=== PATIENT | male | born 1950 | race Caucasian/White ===

== ENCOUNTER → 2016-06-01 | Outpatient (CLI) | payer MEDICARE ==
--- NOTE | 2016-06-01 08:42 | MRI ---
Study: MRI of the Thoracic Spine. Indication: DORSALGIA Technique: Multiplanar, multi sequence MRI of the thoracic spine was obtained without intravenous contrast. Comparison: May 06, 2016. Findings: Previously noted T8 compression fracture has undergone interval vertebral body augmentation without complicating features. There is persistent marrow edema throughout the vertebral body. Prior T9 vertebral body augmentation redemonstrated as well with persistent marrow edema. New subtle marrow edema noted within the anterior margin of the T7 vertebral body with slight extension to the inferior end-plate concerning for a new tiny nondisplaced fracture. No retropulsion or posterior extension. The T10-T11 posterior central disc protrusion contacting the thoracic spinal cord is redemonstrated and stable. Impression: Postsurgical changes of T8 and T9 vertebral body augmentation with new subtle nondisplaced T7 fracture which would also be amenable to vertebral body augmentation. Stable T10-T11 disc protrusion indenting the ventral spinal cord. Electronically signed by: Guicho Chin MD 06/01/2016 08:39
== END ==
LOC: MRI 07:06
PROVIDERS: ATTEND Nurse Practitioner Family
DX: S22.069A Unspecified fracture of T7-T8 vertebra, initial encounter for closed fracture (principal); M51.24 Other intervertebral disc displacement, thoracic region

== ENCOUNTER → 2016-10-15 | Outpatient (CLI) | payer MEDICARE | END | disposition home or self-care (01) | LOC: LAB.O 08:16 | PROVIDERS: ATTEND Psychiatry & Neurology Neurology | DX: G61.81 Chronic inflammatory demyelinating polyneuritis (principal); R41.3 Other amnesia ==

== ENCOUNTER → 2016-11-03 | Outpatient (CLI) | payer MEDICARE | END | disposition home or self-care (01) | LOC: LAB.O 07:17 | PROVIDERS: ATTEND Nurse Practitioner Family | DX: E11.9 Type 2 diabetes mellitus without complications (principal) ==

== ENCOUNTER → 2017-05-26 | Outpatient (CLI) | payer MEDICARE | END | disposition home or self-care (01) | LOC: LAB.O 15:37 | PROVIDERS: ATTEND Psychiatry & Neurology Neurology | DX: G61.81 Chronic inflammatory demyelinating polyneuritis (principal) ==

== ENCOUNTER → 2017-08-29 | Outpatient (CLI) | payer MEDICARE ==
--- NOTE | 2017-08-29 09:10 | US ---
EXAM DESCRIPTION:Carotid Duplex CLINICAL HISTORY:OCCLUSION AND STENOSIS OF JOVITA CAR ART COMPARISON: None TECHNIQUE: Grayscale and color Doppler sonographic evaluations of carotid and vertebral arterial segments of the neck. FINDINGS: Suboptimal visualization of the left vertebral artery. Bilateral carotid and right vertebral arteries are patent bilaterally with appropriate directions of flow, and biphasic flow waveforms. Mild calcific atherosclerotic deposition along carotid bulbs and proximal internal carotid arteries. Peak systolic flow velocities (in CM/sec) as follows: Right side, CCA proximal, 99 CCA distal, 105 ICA proximal, 84 ICA mid, 76 ICA distal, 59 ECA proximal, 107 Proximal ICA/distal CCA ratio, 0.8 Left side, CCA proximal, 85 CCA distal, 164 ICA proximal, 44 ICA mid, 23 ICA distal, 25 ECA proximal, 90 Proximal ICA/distal CCA ratio, 0.3 Morphologically, there is approximately 30% stenosis in proximal right internal carotid artery. Focally 42% stenosis in right carotid bulb and 59% stenosis in left carotid bulb. IMPRESSION: 1. Suboptimal visualization of left vertebral artery. Bilateral carotid and right vertebral arteries are patent bilaterally with appropriate directions of flow 2. Possible moderate (50-69%) stenosis between proximal to distal segments of the left common carotid artery based on velocity criteria. There is also morphologically 59% stenosis in the left carotid bulb Electronically signed by: John Travis MD 08/29/2017 9:08 AM CDT
== END | disposition home or self-care (01) ==
LOC: US 08:02
PROVIDERS: ATTEND Nurse Practitioner Family
DX: I65.23 Occlusion and stenosis of bilateral carotid arteries (principal)

== ENCOUNTER → 2017-10-20 | Outpatient (CLI) | payer MEDICARE ==
--- NOTE | 2017-10-20 15:17 | MRI ---
EXAM DESCRIPTION: Brain w/wo Contrast: Magnetic Resonance Imaging. CLINICAL HISTORY: TRIGEMINAL NEURALGIA COMPARISON: Duplex ultrasound evaluation of the bilateral carotid vertebral systems 08/29/2017. TECHNIQUE: Multiplanar, high-field MRI, multiple conventional sequences, without and with gadolinium IV contrast. No adverse reactions. Multiple axial diffusion sequences. FINDINGS: Minimal small bands of hyperintense FLAIR and T2-weighted signal in the periventricular white matter abutting the ventricles. Normal signal in the subcortical white and gar matter junctions of the cerebral hemispheres. . No hemorrhage cerebral edema or abnormal contrast enhancement. Normal signal in the bilateral basal ganglia, except for prominent perivascular spaces. No hemorrhage, no cerebral edema, no mass-effect. Normal contrast enhancement. Normal signal in the brainstem and cerebellar hemispheres. No hemorrhage, no cerebral edema, no mass-effect. Normal contrast enhancement. Bilateral trigeminal ganglion appear symmetric in size and signal and enhancement; no mass effect. Concordance of the diffusion and non-diffusion sequences with no evidence of acute or subacute infarction. Cortical sulci, ventricles, and other CSF spaces, and the subdural spaces are minimally prominent for patient's age. No effacement or displacement. No midline shift. No extra-axial hemorrhage. Normal contrast enhancement. Normal flow signal void in the major vessels of the [place], and the venous sinuses. IACs are symmetric bilaterally. Minimal fluid signal in the inferior right mastoid air cells. No mass effect in the bilateral Cerebellopontine angles. Normal contrast enhancement. Pituitary gland occupies most of the sella. Normal contrast enhancement. Base of the cerebellar tonsils is above the foramen magnum. Normal signal in the included paranasal sinuses. Magnetic artifact degrading the sinus area on the GRE images. The bony calvarium is intact. IMPRESSION: 1. Minimal periventricular white matter leukomalacia most likely related to microvascular disease. This likely related to migraine headaches, vasculitis, demyelinating process, or inflammatory process. 2. Symmetric size and signal and enhancement in the trigeminal ganglion. 3. Minimal right mastoiditis. Paranasal sinuses are unremarkable. Electronically signed by: Itz Wall MD 10/20/2017 3:16 PM CDT
== END ==
LOC: MRI 07:12
PROVIDERS: ATTEND Nurse Practitioner Family
DX: G50.0 Trigeminal neuralgia (principal); H70.91 Unspecified mastoiditis, right ear

== ENCOUNTER → 2018-02-27 | Outpatient (CLI) | payer MEDICARE ==
--- NOTE | 2018-02-27 15:03 | MRI ---
EXAM DESCRIPTION: Brain w/o Contrast: MRI. CLINICAL HISTORY: TIA. 2 days ago: dizziness weakness vision changes. COMPARISON: MRI scan of the brain without and with gadolinium IV contrast 10/20/2016. TECHNIQUE: Multiplanar, high-field MRI unit, multiple diffusion sequences, multiple conventional sequences without contrast. FINDINGS: Small bilateral foci of hyperintense FLAIR and T2-weighted signal primarily in the periventricular white matter with no significant changes in the subcortical white matter. . No hemorrhage, no cerebral edema, no diffusion restriction. Bilateral basal ganglia unremarkable with no diffusion restriction or hemorrhage. Normal signal in the brainstem and cerebellar hemispheres. No hemorrhage, no cerebral edema, or diffusion restriction. Concordance of the diffusion and non-diffusion sequences with no diffusion restriction. Cortical sulci, ventricles, and other CSF spaces, and the subdural spaces are physiologic for patient's age. No effacement or displacement. No midline shift. No extra-axial hemorrhage. Normal flow signal void in the major vessels of the [place], and the venous sinuses. IACs are symmetric bilaterally. Minimal fluid signal in the inferior right mastoid air cells. No mass effect in the bilateral cerebellopontine angles. Pituitary gland occupies all of the sella. Base of the cerebellar tonsils is above the foramen magnum. Bilateral minimal mucosal thickening in the ethmoid air cells and axillary antra. The bony calvarium is intact. IMPRESSION: 1. Minimal bilateral periventricular white matter signal changes, stable since the prior study and most likely age-related or cerebral microvascular disease. No significant findings in the bilateral basal ganglia, brainstem, or posterior fossa. No hemorrhage or cerebral edema. 2. MRI noncontrast diffusion study showing no evidence of acute or subacute infarction, with no diffusion restriction 3. Stable inflammatory signal in the inferior right mastoid air cells and the paranasal sinuses. Electronically signed by: Itz Wall MD 02/27/2018 3:01 PM CDT
== END ==
LOC: MRI 10:00
PROVIDERS: ATTEND Emergency Medicine
DX: G45.9 Transient cerebral ischemic attack, unspecified (principal)

== ENCOUNTER → 2018-06-07 | Outpatient (CLI) | payer MEDICARE ==
--- NOTE | 2018-06-08 08:10 | CT ---
Procedure: CT LUNG SCREENING Exam Date: June 07, 2018. Ordering Provider: Valerie Eldridge Clinical Indication: HISTORY OF NICOTINE DEPENDENCE. 30 pack years. Quit smoking. This patient meets eligibility criteria for low-dose CT lung cancer screening. Comparison: None. Technique: Using a multislice scanner, sequential helical axial imaging was obtained in the thorax, 2.5 mm thickness, 2.5 mm separation, from the level of the thoracic inlet through the lung bases without IV contrast. A low dose protocol was utilized: CTDI: 2.93 mGy. 120. kVp. 75 mA. DLP 111.18 mGy centimeters. 2D sagittal and coronal reconstructed images, 6.0 mm thickness, were obtained. This exam was performed according to our departmental dose optimization program which includes use of automated exposure control, adjustment of the mA and/or kV according to patient size and/or use of iterative reconstruction technique. Nodule measurements under 10 mm are given as mean value of 3 axes diameters. FINDINGS: Lungs and large airways: Bilateral mild perihilar peribronchial wall cuffing. Minimal atelectasis in the bilateral lower lobe bases and scarring in the inferior medial middle lobe and inferior lingula. Minimal parenchymal blebs in the bilateral upper lobes. No abnormal nodule, no mass, no focal infiltrate. Pleura and space: Bilateral pleural thickening in the bases and laterally abutting the lower lobes. No effusion or pneumothorax. Mediastinum and kera: evaluation limited by low dose technique and lack of IV contrast. No enlarged lymph nodes. No dominant soft tissue masses or abnormal calcifications. Heart and great vessels: Atherosclerotic calcifications in the coronary arteries, aortic arch, and descending thoracic aorta. Chest wall, lower neck, axillae: Evaluation also limited by same factors as described above. Calcifications in the right thyroid lobe. No enlarged axillary lymph nodes. Upper abdomen: Gallbladder is visualized and may contain sludge. Normal size and density of the spleen and adrenal glands. Included peritoneal space with no free fluid or free air. Osseous structures: Evaluation limited by low dose MIP technique. Arthrosis in the sternomanubrial joint and in the bilateral external clavicular joints. Minimal arthrosis in the right glenohumeral joint. Previous vertebral plasty augmentation T7, T8, and T9 vertebral bodies. Compression of all 3 vertebral bodies, T8 greater than T9 greater than T7. Spondylosis at other levels. IMPRESSION: 1. Minimal emphysematous changes. No abnormal nodule. No mass. No focal infiltrate. [facility] Best Practice guidelines recommend one year follow-up based upon lung RADS category system.. Please see below for Lung RADS category and FOLLOW-UP.* *Lung RADS category Category 1 - No nodule or definitely benign nodules (probability of malignancy less than 1%). Follow-up: Continue annual screening with Low Dose Chest CT in 12 months. 2. Calcifications in the right lobe of the thyroid gland. Follow-up thyroid ultrasound is recommended. Electronically signed by: Itz Wall MD 06/08/2018 8:09 AM [facility]
== END ==
LOC: CT 08:10
PROVIDERS: ATTEND Nurse Practitioner Family
DX: Z87.891 Personal history of nicotine dependence (principal)

== ENCOUNTER → 2018-06-09 | Outpatient (CLI) | payer MEDICARE ==
--- NOTE | 2018-06-10 16:14 | US ---
US THYROID CLINICAL STATEMENT: NONTOXIC SINGLE THYROID NODULE. COMPARISON: None FINDINGS: Size right thyroid lobe: 4.2 x 1.5 x 1.4 cm Size left thyroid lobe: 4.3 x 2.0 x 1.7 cm Size isthmus: 0.31 cm Estimated total number of nodules greater than or equal to 1 cm: None.. Heterogeneous. No parenchymal edema or overlying skin changes. No abnormal vascularity. Nodule 1: Size: 0.6 x 0.5 x 0.4 cm Location: Right Mid Composition: cannot determine: 2 points Echogenicity: hyperechoic: 1 point Shape: wider than tall: 0 points Margins: smooth: 0 points Echogenic foci: macrocalcifications: 1 point ACR Total Points: 4; ACR TI-RADS risk category: TR4 - moderately suspicious nodule. Nodule 2: Size: 0.3 x 0.4 x 0.2 cm Location: Left Lower Composition: solid or almost completely solid: 2 points Echogenicity: hypoechoic: 2 points Shape: wider than tall: 0 points Margins: smooth: 0 points Echogenic foci: none: 0 points ACR Total Points: 4; ACR TI-RADS risk category: TR4 - moderately suspicious nodule. The soft tissue around the thyroid gland shows no evidence of dominant solid mass or distinct cyst. No parenchymal edema or large calcifications. No overlying skin changes. Normal vascularity. IMPRESSION: 1. Nodule 1: ACR TI-RADS 2017 Category TR4. Recommend: No further follow-up. Recommendations based upon [facility] Best [employer] recommendations and ACR TI-RADS 2017 guidelines. Please see below*. 2. Nodule 2: ACR TI-RADS 2017 Category TR4. Recommend: No further follow-up. 3. Soft tissue around the thyroid gland is unremarkable. *ACR TI-RADS 2017 Recommendations: TR1: No FNA or follow up TR2: No FNA or follow up TR3: FNA if >/= 2.5 cm, follow up if 1.5 - 2.4 cm in 1, 3, and 5 years TR4: FNA if >/= 1.5 cm, follow up if 1.0 - 1.4 cm in 1, 2, 3, and 5 years TR5: FNA if >/= 1.0 cm, follow up if 0.5 - 0.9 cm every year for 5 years ACR TI-RADS recommends that no more than two nodules with the highest ACR TI-RADS total point should be biopsied and no more than four nodules should be followed. Electronically signed by: Itz Wall MD 06/10/2018 4:13 PM [facility]
== END ==
LOC: US 13:27
PROVIDERS: ATTEND Emergency Medicine
DX: E04.1 Nontoxic single thyroid nodule (principal)

== ENCOUNTER → 2018-07-31 | Outpatient (CLI) | payer MEDICARE ==
--- NOTE | 2018-07-31 11:20 | CT ---
EXAM DESCRIPTION: Abdoment/Pelvis w/o Contrast CLINICAL HISTORY: 67 years Male, LEFT LOWER QUADRANT PAIN R10.32 COMPARISON: None available. TECHNIQUE: Contiguous 3 mm axial images were obtained from the lung bases to the level of the proximal femora without the administration of intravenous or oral contrast. Sagittal and coronal reconstructions were reviewed. FINDINGS: Limited evaluation of the solid organs due to the lack of intravenous contrast. THORAX: Mild atelectasis is noted in the right middle lobe. The imaged lower thorax otherwise appears normal. LIVER: The liver demonstrates normal size and density with no intrahepatic biliary ductal dilatation. GALLBLADDER: Layering stones and small sludge. PANCREAS: 1 cm cystic lesion is identified along the superior aspect of the distal body. SPLEEN: Normal ADRENAL GLANDS: 1.6 cm left adrenal adenoma is noted. KIDNEYS: A simple cyst is identified in the interpolar region of the right kidney. The visualized ureters appear grossly unremarkable. STOMACH: Small hiatal hernia with evidence of reflux. The stomach is not well-distended limiting detailed evaluation. SMALL BOWEL: The small bowel loops demonstrate variable degrees of distention with no abnormal dilatation or other signs to suggest bowel obstruction. LARGE BOWEL: Mild constipation is noted. The appendix is well-visualized and appears normal No evidence of free intraperitoneal air or fluid. RETROPERITONEUM: The abdominal aorta is nonaneurysmal with mild atherosclerosis. The inferior vena cava is normal in size and caliber. No abnormally enlarged retroperitoneal lymph nodes are identified. URINARY BLADDER:The urinary bladder is well-distended with no gross abnormality. The prostate gland demonstrates few calcifications. The seminal vesicles appear normal. ADDITIONAL FINDINGS: 1.6 x 2.3 cm indeterminate soft tissue density is identified in the left inguinal region. Fat-containing bilateral inguinal hernias are noted. 1.3 cm fat-containing umbilical hernia is noted. BONES: Mild degenerative changes are identified in the visualized bones.No evidence of osteophytic or osteoblastic lesions. IMPRESSION: 1. Gallbladder sludge and small stones in the dependent portion. 2. 1 cm cystic lesion is noted along the superior aspect of the distal body of the pancreas. 3. 1.6 cm left adrenal adenoma. 4. 1.6 x 2.3 cm indeterminate soft tissue density is noted in the left inguinal region. This could represent a hernia plug versus lymph node. Clinical correlation with history of prior surgery is recommended. 5. Bilateral fat-containing inguinal hernias are identified. This exam was performed according to our departmental dose-optimization program, which includes automated exposure control, adjustment of the mA and/or kV according to patient size and/or use of iterative reconstruction technique. Electronically signed by: Germania Suresh MD 07/31/2018 11:17 AM CDT
== END ==
LOC: CT 07:47
PROVIDERS: ATTEND Nurse Practitioner Family
DX: K80.20 Calculus of gallbladder without cholecystitis without obstruction (principal); K40.20 Bilateral inguinal hernia, without obstruction or gangrene, not specified as recurrent; K86.89 Other specified diseases of pancreas; D35.02 Benign neoplasm of left adrenal gland

== ENCOUNTER → 2018-08-28 | Outpatient (CLI) | payer MEDICARE ==
--- NOTE | 2018-08-29 08:16 | RAD ---
Three-view left knee Indication: LEFT KNEE PAIN Comparison: None. Impression: Mild to moderate tricompartmental joint space narrowing. Large knee effusion. No acute fracture. MRI could better evaluate for internal derangement as clinically indicated. Scattered vascular calcifications noted. Soft tissue swelling about the knee. Electronically signed by: Guicho Chin MD 08/29/2018 8:13 AM CDT
== END ==
LOC: RAD 13:55
PROVIDERS: ATTEND Emergency Medicine
DX: M25.862 Other specified joint disorders, left knee (principal); M25.462 Effusion, left knee; I77.89 Other specified disorders of arteries and arterioles; M79.89 Other specified soft tissue disorders

== ENCOUNTER → 2019-02-08 | Outpatient (CLI) | payer MEDICARE ==
--- NOTE | 2019-02-09 10:59 | US ---
EXAM DESCRIPTION: Aorta: Ultrasound. CLINICAL HISTORY: AAA SCREENING COMPARISON: CT abdomen and pelvis without contrast July 2018. TECHNIQUE: Transcutaneous scanning: Two-dimensional and Doppler modes. Technically difficult study due to patient large body habitus FINDINGS: Abdominal aorta diameter - Proximal: 2.3 x 2.1 cm. Mid: 2.4 x 2.0 cm. Distal: 2.9 x 2.2 cm. Common Iliac diameter - Right: 11 mm. Left: 11 mm. Other: Atherosclerotic irregularity of the aortic intima layer. IMPRESSION: 2.9 cm abdominal aortic aneurysm suspected. [facility] Best Practice recommendations: Recommend follow-up every 5 years. Reference: J Am Aubree Rad[employer] 2013;10:[id number]. Electronically signed by: Itz Wall MD 02/09/2019 10:57 AM CDT
== END ==
LOC: US 08:00
PROVIDERS: ATTEND Emergency Medicine
DX: Z13.6 Encounter for screening for cardiovascular disorders (principal)

== ENCOUNTER 2019-08-30 10:20 | Emergency (ER) | payer MEDICARE ==
--- NOTE | 2019-08-30 11:49 | ED.PDOC ---
History of Present Illness - General Chief Complaint: Diabetic Complaint Stated Complaint: I took 50 units of my Apridra instead of 5 units Time Seen by Provider: 08/30/19 10:34 Source: patient Exam Limitations: no limitations - History of Present Illness Initial Comments: Patient is a 69-year-old male presented emergency room after accidentally taking 50 units of apidra this morning rather than 50 units of toujeo. The patient is asymptomatic. He is still hyperglycemic. No symptoms. Timing/Duration: 1-3 hours Severity: mild Improving Factors: nothing Worsening Factors: nothing Associated Symptoms: denies symptoms Allergies/Adverse Reactions: Allergies NO KNOWN ALLERGY Allergy (Verified 08/08/12 09:12) Home Medications: Ambulatory Orders Carteolol HCl (Ophth) [Carteolol HCl] 1 % OP 08/08/12 Diazepam [Valium] 5 mg PO PRN 08/08/12 Gabapentin 600 mg PO 08/08/12 Insulin Aspart [Novolog Flexpen] 100 unit SC 08/08/12 Insulin Glargine [Lantus Solostar] 30 unit SC HS 08/08/12 Lisinopril 10 mg PO DAILY 08/08/12 Metoclopramide HCl QID 08/08/12 Phentermine HCl DAILY 08/08/12 Review of Systems - Review of Systems Constitutional: States: no symptoms reported EENTM: States: no symptoms reported Respiratory: States: no symptoms reported Cardiology: States: no symptoms reported Gastrointestinal/Abdominal: States: no symptoms reported Genitourinary: States: no symptoms reported Musculoskeletal: States: no symptoms reported Skin: States: no symptoms reported Neurological: States: no symptoms reported Endocrine: States: no symptoms reported All other Systems: No Change from Baseline Past Medical History (General) - Patient Medical History Hx Congestive Heart Failure: No Hx Diabetes: Yes - Vaccination History Hx Tetanus, Diphtheria Vaccination: No - unknown Hx Influenza Vaccination: Yes Hx Pneumococcal Vaccination: Yes - Social History Hx Tobacco Use: No Hx Alcohol Use: No Hx Substance Use: No Hx Substance Use Treatment: No Hx Depression: No Family Medical History - Family History Mother Family History: Unknown Physical Exam - Physical Exam General Appearance: Alert, Comfortable, No apparent distress Eye Exam: bilateral normal Ears, Nose, Throat: hearing grossly normal Neck: full range of motion Respiratory: normal breath sounds, no respiratory distress, no accessory muscle use Cardiovascular/Chest: normal peripheral pulses, no edema, other - Regular rate Peripheral Pulses: radial,right: 2+, radial,left: 2+ Gastrointestinal/Abdominal: normal bowel sounds, non tender, soft Rectal Exam: deferred Back Exam: no CVA tenderness, no vertebral tenderness Extremity: normal range of motion, non-tender, normal inspection, no pedal edema, normal capillary refill Neurologic: watch guard gate II-XII nml as tested, alert, normal mood/affect, oriented x 3 Skin Exam: normal color Comments: Vital Signs - 24 hr 08/30/19 10:25 Temperature 98.2 F Pulse Rate [ 77 monitor] Respiratory 18 Rate Blood Pressure 124/87 [left forearm] O2 Sat by Pulse 94 L Oximetry Progress - Progress Progress: 08/30/19 11:48 The patient is a 69-year-old male presented emergency room secondary to accidentally taking a large amount of his short acting insulin. He did not take his long-acting insulin. He did eat breakfast. The patient is asymptomatic. He has been monitored here for a couple of hours. Blood sugars are only rising rather than falling. He will be allowed to go home. He can take his daily dose of his long-acting insulin at around 1 PM as long as his blood sugars are remaining above 150. He can resume his rapid acting insulin his previous. ER warnings are given. Keep follow-up with primary care doctor. laila regalado [phone] - Results/Orders Results/Orders: Laboratory Tests 08/30/19 08/30/19 08/30/19 10:28 11:08 11:29 POC Glucose 225 H 301 H D 348 H Departure - Departure Clinical Impression: Accidental medication overdose Qualifiers: Encounter type: initial encounter Qualified Code(s): T50.901A - Poisoning by unspecified drugs, medicaments and biological substances, accidental (unintentional), initial encounter Disposition: Discharge to Home or Self Care Condition: Fair Departure Forms: ED Discharge - Pt. Copy, Patient Portal Self Enrollment Diet: diabetic diet Activity: increase activity as tolerated Referrals: NU GUZMÁN [Primary Care Provider] - 1-2 Weeks Home Medications: Ambulatory Orders Carteolol HCl (Ophth) [Carteolol HCl] 1 % OP 08/08/12 Diazepam [Valium] 5 mg PO PRN 08/08/12 Gabapentin 600 mg PO 08/08/12 Insulin Aspart [Novolog Flexpen] 100 unit SC 08/08/12 Insulin Glargine [Lantus Solostar] 30 unit SC HS 08/08/12 Lisinopril 10 mg PO DAILY 08/08/12 Metoclopramide HCl QID 08/08/12 Phentermine HCl DAILY 08/08/12 Additional Instructions: The patient is a 69-year-old male presented emergency room secondary to accidentally taking a large amount of his short acting insulin. He did not take his long-acting insulin. He did eat breakfast. The patient is asymptomatic. He is now well past the peak action of the insulin. he has been monitored here for a couple of hours. Blood sugars are only rising rather than falling. He will be allowed to go home. He can take his daily dose of his long-acting insulin at around 1 PM as long as his blood sugars are remaining above 150. He can resume his rapid acting insulin his previous. ER warnings are given. Keep follow-up with primary care doctor.
[2019-08-30 12:10] VITALS: BP 152/88; TEMP 98.8; O2SAT 94
== END 2019-08-30 12:20 | disposition home or self-care (01) ==
LOC: ER 10:20
DX: T38.3X1A Poisoning by insulin and oral hypoglycemic [antidiabetic] drugs, accidental (unintentional), initial encounter (principal); E11.9 Type 2 diabetes mellitus without complications; Z79.4 Long term (current) use of insulin

== ENCOUNTER 2019-09-25 12:31 | Emergency (ER) | payer MEDICARE ==
[2019-09-25] MEDS ORDERED: SODIUM CHLORIDE 0.9% (FLUSH) 10 ML SYG IV PRN (13:33)
[2019-09-25] MEDS ORDERED: SODIUM CHLORIDE 0.9% 1000ML 1,000 ML IVS ONE ×3 (13:46→16:38)
[2019-09-25] MEDS ORDERED: INSULIN, REG.(HUMAN) 100 U/ML VIAL SUBCU ONE (13:55)
[2019-09-25 15:08] VITALS: TEMP 98.7
[2019-09-25 16:14] VITALS: BP 123/78; O2SAT 97
[2019-09-25] MEDS ORDERED: INSULIN LISPRO 100 UNITS/ML PEN SUBCU ONE (16:41)
--- NOTE | 2019-09-25 16:41 | ED.PDOC ---
History of Present Illness - General Chief Complaint: Diabetic Complaint Stated Complaint: elevated glucose Time Seen by Provider: 09/25/19 13:03 Source: patient Exam Limitations: no limitations - History of Present Illness Initial Comments: PT PRESENTS TO URGENT CARE TODAY W/O SX BUT TO TRY TO CHANGE HIS INSULIN MEDS. HE MENTIONS HE WAS RECENTLY CHANGED FROM TUOJEO TO APIDRA, HE FEELS IT DROPS HIS BLOOD SUGAR TOO MUCH; THUS HE DID NOT TAKE HIS INSULIN MEDICATIONS TODAY. URGENT CARE NOTED HIS BLOOD GLUCOSE TO BE 530, THUS THEY APPROPRIATELY SENT HIM TO ER FOR MANAGEMENT OF HIS ACUTE HYPERGLYCEMIA. HE HAS AN APPT THIS FRI (IN [address]) [address] GUZMÁN, WHO MANAGES HIS DIABETES. Associated Symptoms: denies symptoms Allergies/Adverse Reactions: Allergies NO KNOWN ALLERGY Allergy (Verified 08/08/12 09:12) Home Medications: Ambulatory Orders Atorvastatin Calcium 40 mg PO DAILY 08/30/19 Carvedilol 12.5 mg PO BID 08/30/19 Clonidine HCl 0.1 mg PO PRN 08/30/19 Clopidogrel Bisulfate 75 mg PO DAILY 08/30/19 DULoxetine HCL [Cymbalta] 30 mg PO DAILY 08/30/19 Furosemide 20 mg PO PRN 08/30/19 Gabapentin 800 mg PO TID 08/30/19 Insulin Glargine [Toujeo Max Solostar] 50 units SUBCU DAILY 08/30/19 Insulin NPH (Human) (Isophane) [Novolin N] 50 units SUBCU BID 08/30/19 Insulin Regular (Human) [Novolin R] 20 units SUBCU QID 08/30/19 Pantoprazole Tablet [Protonix] 40 mg PO DAILY 08/30/19 Amlodipine Besylate [Norvasc] 10 mg PO DAILY 09/25/19 Celecoxib 200 mg PO DAILY 09/25/19 Review of Systems - Review of Systems Constitutional: States: no symptoms reported EENTM: States: no symptoms reported Respiratory: States: no symptoms reported Cardiology: States: no symptoms reported Gastrointestinal/Abdominal: States: no symptoms reported. Denies: nausea Genitourinary: States: no symptoms reported Musculoskeletal: States: no symptoms reported Skin: States: no symptoms reported Neurological: States: no symptoms reported Endocrine: Denies: excessive sweating, flushing, intolerance to cold, intolerance to heat, increased hunger, increased thirst, increased urine, unexplained weight gain, unexplained weight loss Hematologic/Lymphatic: States: no symptoms reported All other Systems: Reviewed and Negative Past Medical History (General) - Patient Medical History Hx Stroke: Yes - TIA Hx Congestive Heart Failure: No Hx Hypertension: Yes Hx Diabetes: Yes - Vaccination History Hx Tetanus, Diphtheria Vaccination: No - unknown Hx Influenza Vaccination: Yes Hx Pneumococcal Vaccination: Yes - Social History Hx Tobacco Use: Yes Hx Alcohol Use: No Hx Substance Use: No Hx Substance Use Treatment: No Hx Depression: No Family Medical History - Family History Mother Family History: Unknown Physical Exam - Physical Exam General Appearance: Alert, No apparent distress Eye Exam: bilateral normal Ears, Nose, Throat: hearing grossly normal, normal ENT inspection, normal pharynx Neck: full range of motion, normal inspection Respiratory: lungs clear, normal breath sounds, no respiratory distress Cardiovascular/Chest: normal peripheral pulses, regular rate, rhythm, no edema, no murmur Peripheral Pulses: radial,right: 2+, radial,left: 2+, dorsalis pedis,right: 1+, dorsalis pedis,left: 1+, posterior tibialis,right: 1+, posterior tibialis,left: 1+ Gastrointestinal/Abdominal: normal bowel sounds, non tender, soft, no organomegaly, no pulsatile mass Back Exam: no CVA tenderness, no vertebral tenderness Extremity: normal range of motion, normal inspection, no pedal edema Neurologic: no motor/sensory deficits, alert, normal mood/affect, oriented x 3 Skin Exam: normal color, warm/dry Lymphatic: no adenopathy Progress - Progress Progress: 09/25/19 16:39 PT EXPRESSED HE IS VERY ANGRY ABOUT BEING IN THE ER. I EXPLAINED HIS GLUCOSE WAS DANGEROUSLY HIGH ABOVE 500 AND THAT WE NEED TO REDUCE HIS SUGAR TO A SAFE LEVEL. PT IS DEMANDING FOOD, WHICH WILL RAISE HIS SUGAR AND MAKE REDUCING HIS SUGAR IN THE ER MORE DIFFICULT/PROLONGED. I EXPLAINED THIS TO PT. 09/25/19 16:44 PT IS REFUSING IVF, INSULIN, AND ACCUCHECKS AND WISHES TO SIGN OUT AMA. WE WILL HAVE HIM SIGN OUT AMA. I WARNED HIM OF THE LIFE-THREATENING DANGER OF NOT TAKING HIS INSULIN MEDICATIONS, HE DID THIS MORNING, AND OF REFUSING MEDICAL CARE, HE IS PRESENTLY DOING IN THE ER. PT IS NOT YET CLEARED FOR DISCHARGE AND IS LEAVING AGAINST MY MEDICAL ADVICE. ER COURSE: BLOOD GLUCOSE 474. 1 L BOLUS AND 10 UNITS HUMULIN. GLUCOSE IMPROVED TO 329. PT THEN REFUSED ANY MORE CARE AND LEFT AMA. AT 16:48 AFTER PT SIGNED OUT AND LEFT AMA, HIS ACCUCHECK WAS NOTED TO BE DOWN TO 270. EKG NSR. CARD ENZ NEG. CBC NO CONCERNS. NEG SERUM KETONES THUS HYPERGLYCEMIC EPISODE BUT NOT IN DKA. CMP: SODIUM 125. NL ANION GAP. BUN AND CR ELEVATED, WITH BUN/CR RATIO UNDER 20, THUS INTRARENAL, THUS CRF. UA = PROTEIN AND GLUCOSE. NO KETONES. 09/25/19 22:51 Departure - Departure Clinical Impression: Hyponatremia, Glucosuria Diabetes mellitus with hyperglycemia, with long-term current use of insulin Qualifiers: Diabetes mellitus type: type 2 Qualified Code(s): E11.65 - Type 2 diabetes mellitus with hyperglycemia; Z79.4 - termite exterminator helper (current) use of insulin Diabetes mellitus with chronic kidney disease Qualifiers: Diabetes mellitus type: type 2 Diabetes mellitus half-way insulin use: with half-way use Chronic kidney disease stage: unspecified stage Qualified Code(s): E11.22 - Type 2 diabetes mellitus with diabetic chronic kidney disease; Z79.4 - termite exterminator helper (current) use of insulin Proteinuria Qualifiers: Proteinuria type: unspecified Qualified Code(s): R80.9 - Proteinuria, unspecified Disposition: Left Against Medical Advice Condition: Fair Departure Forms: ED Discharge - Pt. Copy, Patient Portal Self Enrollment Diet: diabetic diet Activity: increase activity as tolerated Referrals: NU GUZMÁN [Primary Care Provider] - 1-2 Weeks Home Medications: Ambulatory Orders Atorvastatin Calcium 40 mg PO DAILY 08/30/19 Carvedilol 12.5 mg PO BID 08/30/19 Clonidine HCl 0.1 mg PO PRN 08/30/19 Clopidogrel Bisulfate 75 mg PO DAILY 08/30/19 DULoxetine HCL [Cymbalta] 30 mg PO DAILY 08/30/19 Furosemide 20 mg PO PRN 08/30/19 Gabapentin 800 mg PO TID 08/30/19 Insulin Glargine [Toujeo Max Solostar] 50 units SUBCU DAILY 08/30/19 Insulin NPH (Human) (Isophane) [Novolin N] 50 units SUBCU BID 08/30/19 Insulin Regular (Human) [Novolin R] 20 units SUBCU QID 08/30/19 Pantoprazole Tablet [Protonix] 40 mg PO DAILY 08/30/19 Amlodipine Besylate [Norvasc] 10 mg PO DAILY 09/25/19 Celecoxib 200 mg PO DAILY 09/25/19
== END 2019-09-25 16:55 | disposition left against medical advice (07) ==
LOC: ER 12:31
DX: E11.65 Type 2 diabetes mellitus with hyperglycemia (principal); E11.22 Type 2 diabetes mellitus with diabetic chronic kidney disease; E78.1 Pure hyperglyceridemia; R80.9 Proteinuria, unspecified; I10 Essential (primary) hypertension; Z53.29 Procedure and treatment not carried out because of patient's decision for other reasons; Z87.891 Personal history of nicotine dependence; Z86.73 Personal history of transient ischemic attack (TIA), and cerebral infarction without residual deficits; Z79.899 Other long term (current) drug therapy; Z79.4 Long term (current) use of insulin
CPT/HCPCS: 36415; 36416; 80053; 81001; 82009; 82550; 82553; 82947; 82948; 84484; 85025; 93005; 94760; J7030

== ENCOUNTER → 2019-11-09 | Outpatient (CLI) | payer MEDICARE ==
--- NOTE | 2019-11-10 17:18 | US ---
EXAM DESCRIPTION: Renal Arteries: Ultrasound. CLINICAL HISTORY: HTN COMPARISON: Ultrasound abdominal aorta January 2019. TECHNIQUE: Transcutaneous scanning: Grayscale mode. Doppler systolic and diastolic measurements of the abdominal aorta, renal arteries, intra renal arteries, and renal veins. FINDINGS: Grayscale evaluation of the kidneys and abdominal aorta was not performed. PSV (cm/sec): Aorta: 105.8 Right renal artery: 43.9 Left renal artery: 43.8 EDV (cm/sec): Right renal artery: 11.3 Left renal artery: 10.0 Renal veins: Visualized IVC: Visualized Intrarenal RI's: Proximal/Segmental Right: Not measured Left: 1.0. Middle/segmental Right: 1.0 Left: 1.0. Inferior/segmental Right: 0.86 Left: 1.0 Renal Aortic Ratio: Right RAR = RRA PSV/Aortic PSV = 43.9 /105.8= 0.4. Left RAR = LRA PSV/Aortic PSV = 43.8/105.8 = 0.4. End Diastolic Ratio: Right EDR = RRA EDV/RRA PSV = 11.3/43.9 = 0.26. Left EDR = LRA EDV/LRA PSV = 10.0/43.8= 0.23. Other: None.. IMPRESSION: 1. Doppler evaluation of the renal arteries bilaterally aorta, and intrarenal arteries showing no evidence of significant renal artery stenosis. 2. Abnormally low end-diastolic ratios bilaterally and elevated RI values bilaterally indicate significant renovascular disease in the parenchyma bilaterally. Electronically signed by: Itz Wall MD 11/10/2019 5:17 PM CDT
== END ==
LOC: US 08:15
PROVIDERS: ATTEND Internal Medicine Nephrology
DX: I10 Essential (primary) hypertension (principal)

== ENCOUNTER 2019-11-19 13:44 | Emergency (ER) | payer MEDICARE ==
[2019-11-19 14:01] VITALS: TEMP 97.6
[2019-11-19] MEDS ORDERED: SODIUM CHLORIDE 0.9% (FLUSH) 10 ML SYG IV PRN (14:01)
[2019-11-19] MEDS ORDERED: METOCLOPRAMIDE HCL INJ 10 MG/2 ML VIAL IV ONE (15:51)
[2019-11-19 18:08] VITALS: BP 154/74; O2SAT 95
--- NOTE | 2019-11-19 19:01 | ED.PDOC ---
History of Present Illness - General Chief Complaint: Abdominal Pain Stated Complaint: BELLY PAIN, CHRONIC, HX OF GASTROPARESIS Time Seen by Provider: 11/19/19 15:51 Information Source: patient, RN notes reviewed, Vital Signs reviewed Exam Limitations: no limitations - History of Present Illness Initial Comments: Patient is a 69-year-old white male who presents with complaints of abdominal pain with associated nausea and vomiting. Patient states that his gastroparesis is acting up. The pain is cramping in nature. It is constant. It waxes and wanes. Nothing seems to make it better or worse. Patient states that his been taking his Reglan. Patient denies any other symptoms. Abdominal Pain Onset Location: epigastric, generalized abdomen Pain Radiation: no radiation Quality: moderate, cramping, waxing/waning Timing/Duration: 7-24 hours Improving Factors: nothing Worsening Factors: eating, movement Associated Symptoms: heartburn, nausea/vomiting, swelling/mass in abdomen Review of Systems - Review of Systems Constitutional: States: no symptoms reported, see HPI. Denies: chills, fever, malaise, weakness EENTM: States: no symptoms reported. Denies: eye pain, blurred vision, double vision Respiratory: States: no symptoms reported. Denies: cough, short of breath, stridor, wheezing Cardiology: States: no symptoms reported. Denies: chest pain, palpitations, syncope Gastrointestinal/Abdominal: States: see HPI, abdominal pain, nausea. Denies: constipation, diarrhea, vomiting Genitourinary: States: no symptoms reported. Denies: discharge, dysuria, frequency Musculoskeletal: States: no symptoms reported. Denies: back pain, neck pain Skin: States: no symptoms reported. Denies: change in color, rash Neurological: States: no symptoms reported. Denies: headache, numbness, tingling, tremors, weakness Endocrine: States: no symptoms reported Hematologic/Lymphatic: States: no symptoms reported All other Systems: Reviewed and Negative Past Medical History (General) - Patient Medical History Hx Seizures: No Hx Stroke: No Hx Dementia: No Hx Asthma: Yes Hx of COPD: No Hx Cardiac Disorders: No Hx Congestive Heart Failure: No Hx Pacemaker: No Hx Hypertension: Yes Hx Thyroid Disease: No Hx Diabetes: Yes Hx Gastroesophageal Reflux: Yes Hx Renal Disease: Yes Hx Cancer: No Hx of HIV: No Hx Hepatitis C: No Hx MRSA: No Hx Other PMH: Yes - Gastroparesis Surgical History: no surgical history - Vaccination History Hx Tetanus, Diphtheria Vaccination: Yes Hx Influenza Vaccination: No Hx Pneumococcal Vaccination: No Immunizations Up to Date: No - Social History Hx Tobacco Use: No Hx Chewing Tobacco Use: No Hx Alcohol Use: No Hx Substance Use: No Hx Substance Use Treatment: No Hx Depression: No Feels Threatened In Home Enviroment: No Feels Threatened In a Relationship: No Hx Physical Abuse: No Hx Emotional Abuse: No Hx Suspected Abuse: No Family Medical History - Family History Mother Family History: Unknown Physical Exam - Physical Exam General Appearance: Alert, Comfortable, Obese, Well Developed, Well Groomed, Well Hydrated, Well Nourished Eyes, Ears, Nose, Throat Exam: PERRL/EOMI, normal ENT inspection, pharynx normal Neck: non-tender, full range of motion, supple, normal inspection Respiratory: chest non-tender, lungs clear, normal breath sounds, no respiratory distress, no accessory muscle use Cardiovascular/Chest: normal peripheral pulses, regular rate, rhythm, no edema, no gallop, no JVD, no murmur Peripheral Pulses: No deficit Gastrointestinal/Abdominal: normal bowel sounds, non tender, soft, distended Back Exam: normal inspection, no CVA tenderness, no vertebral tenderness Extremity: normal range of motion, non-tender, normal inspection, no pedal edema 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 I examined his abdomen while snoring he had no tenderness to palpation. Patient woke up 20 minutes later and left AMA because he felt we were not addressing his pain concerns. Progress - Progress Progress: Differential diagnosis: Gastroparesis, UTI, bowel obstruction, malingering among others. 11/19/19 19:08 Patient left AMA. He was angry because we were not providing him pain medication or addressing his pain issues in the manner in which he wanted them addressed. Patient tolerated p.o. before he left and was passing gas without difficulty. I suspect this is his gastroparesis and he is not compliant with his medications. Jose Gonzalez M.D. #[id number] - Results/Orders Results/Orders: 11/19/19 14:01 IV Care:Saline Lock per Protoc QSHIFT 11/19/19 14:15 EKG STAT Laboratory Results - last 24 hr 11/19/19 11/19/19 11/19/19 14:10 14:10 14:10 WBC 8.1 RBC 3.86 L Hgb 11.5 L Hct 33.7 L MCV 87.5 MCH 29.8 MCHC 34.1 RDW 13.9 Plt Count 241 MPV 8.2 Absolute Neuts (auto) 5.30 Absolute Lymphs (auto) 1.90 Absolute Monos (auto) 0.70 Absolute Eos (auto) 0.20 Absolute Basos (auto) 0.10 Neutrophils % 65.0 Lymphocytes % 23.6 Monocytes % 8.4 Eosinophils % 1.9 Basophils % 1.1 Sodium 134 L Potassium 4.0 Chloride 103 Carbon Dioxide 20 L Anion Gap 15.0 BUN 20 H Creatinine 1.38 H BUN/Creatinine Ratio 14.5 Random Glucose 182 H Serum Osmolality 275.5 Calcium 8.3 L Total Bilirubin 0.7 Direct Bilirubin 0.1 Indirect Bilirubin 0.6 AST 36 ALT 45 Alkaline Phosphatase 107 Serum Total Protein 7.0 Albumin 3.6 Lipase 16 L Urine Color Urine Appearance Urine pH Ur Specific [place] Urine Protein Urine Glucose (UA) Urine Ketones Urine Blood Urine Nitrite Urine Bilirubin Urine Urobilinogen Ur Leukocyte Esterase Urine RBC Urine WBC Ur Epithelial Cells Amorphous Sediment Urine Bacteria 11/19/19 16:10 WBC RBC Hgb Hct MCV MCH MCHC RDW Plt Count MPV Absolute Neuts (auto) Absolute Lymphs (auto) Absolute Monos (auto) Absolute Eos (auto) Absolute Basos (auto) Neutrophils % Lymphocytes % Monocytes % Eosinophils % Basophils % Sodium Potassium Chloride Carbon Dioxide Anion Gap BUN Creatinine BUN/Creatinine Ratio Random Glucose Serum Osmolality Calcium Total Bilirubin Direct Bilirubin Indirect Bilirubin AST ALT Alkaline Phosphatase Serum Total Protein Albumin Lipase Urine Color Yellow Urine Appearance Clear Urine pH 5.0 Ur Specific [place] 1.020 Urine Protein 100 H Urine Glucose (UA) 100 H Urine Ketones Negative Urine Blood Trace-lysed H Urine Nitrite Negative Urine Bilirubin Negative Urine Urobilinogen 1.0 Ur Leukocyte Esterase Negative Urine RBC 0-1 Urine WBC 0 Ur Epithelial Cells 0 Amorphous Sediment 1+ Urine Bacteria 0 EKG performed 19 November 2019 at 1354 hrs.: Normal sinus rhythm at 77 bpm. Low voltage QRS, no ST or T wave changes, borderline EKG. No comparison EKG available. - EKG/XRAY/CT CT Ordered: No Departure - Departure Clinical Impression: Gastroparesis Abdominal pain Qualifiers: Abdominal location: unspecified location Qualified Code(s): R10.9 - Unspecified abdominal pain Time of Disposition: 18:00 Disposition: Left Against Medical Advice Condition: Good Departure Forms: ED Discharge - Pt. Copy, Patient Portal Self Enrollment Instructions: DI for Abdominal Pain-Adult Referrals: NU GUZMÁN [Primary Care Provider] - 1-2 Weeks Home Medications: Ambulatory Orders Atorvastatin Calcium 40 mg PO DAILY 08/30/19 Carvedilol 12.5 mg PO BID 08/30/19 Clonidine HCl 0.1 mg PO PRN 08/30/19 Clopidogrel Bisulfate 75 mg PO DAILY 08/30/19 DULoxetine HCL [Cymbalta] 30 mg PO DAILY 08/30/19 Furosemide 20 mg PO PRN 08/30/19 Gabapentin 800 mg PO TID 08/30/19 Insulin Glargine [Toujeo Max Solostar] 50 units SUBCU DAILY 08/30/19 Insulin NPH (Human) (Isophane) [Novolin N] 50 units SUBCU BID 08/30/19 Insulin Regular (Human) [Novolin R] 20 units SUBCU QID 08/30/19 Pantoprazole Tablet [Protonix] 40 mg PO DAILY 08/30/19 Amlodipine Besylate [Norvasc] 10 mg PO DAILY 09/25/19 Celecoxib 200 mg PO DAILY 09/25/19
== END 2019-11-19 18:09 | disposition left against medical advice (07) ==
LOC: ER 13:44
DX: E11.43 Type 2 diabetes mellitus with diabetic autonomic (poly)neuropathy (principal); K31.84 Gastroparesis; R10.9 Unspecified abdominal pain; I10 Essential (primary) hypertension; Z53.29 Procedure and treatment not carried out because of patient's decision for other reasons
CPT/HCPCS: 36415; 80048; 80076; 81001; 83690; 85025; 93005; J2765

== ENCOUNTER 2020-01-15 11:05 | Emergency (ER) | payer MEDICARE ==
[2020-01-15] MEDS ORDERED: IPRATROPIUM/ALBUTEROL 3 ML VIAL NEB ONE ×2 (11:13→14:44)
[2020-01-15] MEDS ORDERED: ATROPINE 1 MG/10 ML SYG IV ONE (11:19)
--- NOTE | 2020-01-15 11:20 | ED.PDOC ---
History of Present Illness - General Chief Complaint: Trauma Time Seen by Provider: 01/15/20 11:13 Source: patient, EMS - History of Present Illness Initial Comments: 69-year-old male with past medical history of hypertension, COPD, CHF, history of CVA, DM2, gastroparesis who is brought in by EMS from home for chief complaint of fall with head injury and shortness of breath. Patient reports he was recently discharged from [facility] 4 days ago for COPD & PNA. He reports he has gained about 8 pounds since his hospital discharge and is becoming more more short of breath the past few days despite taking Lasix 80 mg BID. Does report drinking lots of water, was not aware of any fluid restrictions. This morning he ambulated to the restroom to urinate and when he walked back to his chair he states that his legs became weak and he fell down backwards. He struck the back of his head against the ground during the fall but denies any LOC. Denies any other acute injuries. Reports minimal pain to the back of his head without radiation, throbbing, no medications taken for relief, worse with palpation. Denies any neck pain. Reports he is markedly short of breath, worse with exertion. Reports intermittent cough but nonproductive. Denies any chest pain, fevers, chills, sore throat, abdominal pain. Denies any vomiting or diarrhea. Last stool was yesterday and normal. He does report worsening swelling in both of his legs and worsening weakness of his legs for the past several days. Denies any other focal neurological deficits. He reports remote history of stroke and takes Plavix but not aspirin or any other blood thinners. His called EMS after he fell. On scene, EMS reported pt markedly dyspneic only able to speak 1-2 words at a time, initial SpO2 84% RA. Pt was given Duonebs and Solumedrol 125 mg IV en route. On arrival here able to speak in short sentences, states dyspnea improving. PCP is Dr. Srikanth Guzmán, poultry grader is Dr. Cortez. Allergies/Adverse Reactions: Allergies NO KNOWN ALLERGY Allergy (Verified 01/15/20 12:05) Home Medications: Ambulatory Orders Atorvastatin Calcium 40 mg PO DAILY 08/30/19 Carvedilol 12.5 mg PO BID 08/30/19 Clonidine HCl 0.1 mg PO PRN 08/30/19 Clopidogrel Bisulfate 75 mg PO DAILY 08/30/19 DULoxetine HCL [Cymbalta] 30 mg PO DAILY 08/30/19 Furosemide 20 mg PO PRN 08/30/19 Gabapentin 800 mg PO TID 08/30/19 Insulin Glargine [Toujeo Max Solostar] 50 units SUBCU DAILY 08/30/19 Insulin NPH (Human) (Isophane) [Novolin N] 50 units SUBCU BID 08/30/19 Insulin Regular (Human) [Novolin R] 20 units SUBCU QID 08/30/19 Pantoprazole Tablet [Protonix] 40 mg PO DAILY 08/30/19 Amlodipine Besylate [Norvasc] 10 mg PO DAILY 09/25/19 Celecoxib 200 mg PO DAILY 09/25/19 Azithromycin Tab [Zithromax Tab] 250 mg PO DAILY 01/15/20 Review of Systems - Review of Systems Review of Systems: 01/15/20 11:20 as per HPI All other Systems: Reviewed and Negative Past Medical History (General) - Patient Medical History Hx Seizures: No Hx Stroke: No Hx Dementia: No Hx Asthma: Yes Hx of COPD: No Hx Cardiac Disorders: No Hx Congestive Heart Failure: No Hx Pacemaker: No Hx Hypertension: Yes Hx Thyroid Disease: No Hx Diabetes: Yes Hx Gastroesophageal Reflux: Yes Hx Renal Disease: Yes Hx Cancer: No Hx of HIV: No Hx Hepatitis C: No Hx MRSA: No - Vaccination History Hx Tetanus, Diphtheria Vaccination: Yes Hx Influenza Vaccination: No Hx Pneumococcal Vaccination: No - Social History Hx Tobacco Use: No Hx Chewing Tobacco Use: No Hx Alcohol Use: No Hx Substance Use: No Hx Substance Use Treatment: No Hx Depression: No Hx Physical Abuse: No Hx Emotional Abuse: No Hx Suspected Abuse: No Family Medical History - Family History Mother Family History: Unknown Physical Exam - Physical Exam General Appearance: Alert, No apparent distress, Restless Eye Exam: bilateral normal Ears, Nose, Throat: normal ENT inspection Neck: non-tender, full range of motion, supple, normal inspection Respiratory: chest non-tender, other - Markedly diminished breath sounds t hroughout, faint bibasilar crackles, moderate dyspnea and tachypnea, speaking in short sentences Cardiovascular/Chest: normal peripheral pulses, no murmur, bradycardia Peripheral Pulses: radial,right: 2+, radial,left: 2+ Gastrointestinal/Abdominal: non tender, soft, no organomegaly Back Exam: normal inspection, no CVA tenderness Extremity: normal range of motion, non-tender, normal inspection, pedal edema - 3+ BL LE pitting edema 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 No focal neurological deficits other than leg weakness which I presume is chronic -Obtain stat CT imaging of the head and C-spine Acute hypoxic respiratory distress -SPO2 noted 84% on room air on EMS arrival at home. Patient does wear oxygen chronically -Suspect acute on chronic COPD exacerbation and consider also pneumonia, CHF exacerbation, ACS, PE, CLEVE, PTX, other -Obtain cardiac work-up, sepsis work-up -Seems to be improving with EMS treatment. Will continue duo nebs in the ED. Sinus Bradycardia -HR 39 on arrival, BP stable, pt denies chest pain -consider ACS, primary conduction disorder, PE, CHF, PNA, COPD, other -obtain cardiac work-up -atropine 0.5 mg IV given on arrival -Duonebs treatments should also help 01/15/20 12:04 -Sinus bradycardia resolved following Atropine and Duonebs in the ED. HR 70s on the monitor. Pt reports improving dyspnea. -Labs pertinent for D-dimer >2700, trop 0.02, BNP 300s, glucose 250s. WBC wnl, mild anemia present. -CT head & c-spine reveal no acute processes -XR chest reveals cardiomegaly, large R pleural effusion with surrounding consolidation and atelectasis per my read -XR pelvis reveals no acute processes per my read -Obtain CTA chest to evaluate for possible PE. 01/15/20 13:21 -CTA chest shows no PE but does reveal Large Right-sided pleural effusion and moderate Left-sided pleural effusion. Also there is a moderate-large pericardial effusion noted. Unsure of the chronicity of the pericardial effusion - question chronic vs acute 2/2 blunt trauma from the fall (Pt's reports they were told he had "fluid around his heart" during his most recent hospitalization.) Pt is w/o chest pain. His dyspnea is markedly improved in the ED with BD's, solumedrol, NC O2. Bradycardia is resolved with Atropine 0.5 mg IV x1 and Duonebs treatments. -Lasix 60 mg IV was given for CHF/pleural effusions and galaviz catheter placed for strict I/O's. -Spoke with Dr. Sanchez, [facility], who accepts pt for ED to ED transfer for pericardial effusion, sinus bradycardia, acute on chronic CHF exacerbation with BL pleural effusions, and acute on chronic COPD exacerbation. Will go via ground EMS in stable but guarded condition. Morris Gary MD Billing #[id number] 01/15/20 11:13 IV Care:Saline Lock per Protoc QSHIFT Telemetry .ONCE Sodium Chloride 0.9% (Flush) [Saline Flush Syringe] 10 ml IV PRN PRN 01/15/20 11:15 EKG STAT 01/15/20 12:07 Catheter:Galaviz QSHIFT 01/15/20 12:15 RESPIRATORY PANEL 2 Stat 01/16/20 09:00 Pulse Ox Daily Laboratory Results - last 24 hr 01/15/20 01/15/20 01/15/20 10:15 10:15 10:15 WBC 9.3 RBC 4.05 L Hgb 11.3 L Hct 34.0 L MCV 83.8 MCH 27.9 MCHC 33.3 RDW 15.9 H Plt Count 328 MPV 8.2 Absolute Neuts (auto) 6.80 Absolute Lymphs (auto) 1.30 Absolute Monos (auto) 1.00 H Absolute Eos (auto) 0.10 Absolute Basos (auto) 0.00 Neutrophils % 73.2 Lymphocytes % 14.4 L Monocytes % 10.7 H Eosinophils % 1.4 Basophils % 0.3 PT INR PTT (SP) D-Dimer, Quantitative Sodium 134 L Potassium 4.1 Chloride 99 L Carbon Dioxide 24 Anion Gap 15.1 BUN 26 H Creatinine 1.48 H BUN/Creatinine Ratio 17.6 Random Glucose 257 H Serum Osmolality 281.8 Lactic Acid Calcium 8.2 L Magnesium Total Bilirubin 0.8 AST 31 ALT 36 Alkaline Phosphatase 143 H Troponin I < 0.02 B-Natriuretic Peptide 223.0 H* Serum Total Protein 6.9 Albumin 3.2 Globulin 3.7 H Albumin/Globulin Ratio 0.9 L TSH Urine Color Urine Appearance Urine pH Ur Specific Merrill Urine Protein Urine Glucose (UA) Urine Ketones Urine Blood Urine Nitrite Urine Bilirubin Urine Urobilinogen Ur Leukocyte Esterase Urine RBC Urine WBC Ur Epithelial Cells Amorphous Sediment Urine Bacteria Urine Mucus 01/15/20 01/15/20 01/15/20 11:53 11:53 11:53 WBC RBC Hgb Hct MCV MCH MCHC RDW Plt Count MPV Absolute Neuts (auto) Absolute Lymphs (auto) Absolute Monos (auto) Absolute Eos (auto) Absolute Basos (auto) Neutrophils % Lymphocytes % Monocytes % Eosinophils % Basophils % PT 11.8 H INR 1.19 H PTT (SP) 27.0 D-Dimer, Quantitative 2740.0 H* Sodium Potassium Chloride Carbon Dioxide Anion Gap BUN Creatinine BUN/Creatinine Ratio Random Glucose Serum Osmolality Lactic Acid 1.0 Calcium Magnesium 2.1 Total Bilirubin AST ALT Alkaline Phosphatase Troponin I B-Natriuretic Peptide Serum Total Protein Albumin Globulin Albumin/Globulin Ratio TSH 3.73 Urine Color Urine Appearance Urine pH Ur Specific Merrill Urine Protein Urine Glucose (UA) Urine Ketones Urine Blood Urine Nitrite Urine Bilirubin Urine Urobilinogen Ur Leukocyte Esterase Urine RBC Urine WBC Ur Epithelial Cells Amorphous Sediment Urine Bacteria Urine Mucus 01/15/20 12:15 WBC RBC Hgb Hct MCV MCH MCHC RDW Plt Count MPV Absolute Neuts (auto) Absolute Lymphs (auto) Absolute Monos (auto) Absolute Eos (auto) Absolute Basos (auto) Neutrophils % Lymphocytes % Monocytes % Eosinophils % Basophils % PT INR PTT (SP) D-Dimer, Quantitative Sodium Potassium Chloride Carbon Dioxide Anion Gap BUN Creatinine BUN/Creatinine Ratio Random Glucose Serum Osmolality Lactic Acid Calcium Magnesium Total Bilirubin AST ALT Alkaline Phosphatase Troponin I B-Natriuretic Peptide Serum Total Protein Albumin Globulin Albumin/Globulin Ratio TSH Urine Color Yellow Urine Appearance Clear Urine pH 5.5 Ur Specific Merrill 1.015 Urine Protein 100 H Urine Glucose (UA) 250 H Urine Ketones Negative Urine Blood Trace-intact H Urine Nitrite Negative Urine Bilirubin Negative Urine Urobilinogen 0.2 Ur Leukocyte Esterase Negative Urine RBC 0-1 Urine WBC 0-1 Ur Epithelial Cells 0-1 Amorphous Sediment 2+ Urine Bacteria Rare Urine Mucus Moderate - EKG/XRAY/CT EKG: Sinus - bradycardia, HR 40, no ST elevs noted, q waves in anteroseptal leads question from prior PA, axis normal, intervals normal, compared to 11/19/2019 EKG anterior q waves and bradycardia appear new XRAY: chest - cardiomegaly, large right-sided pleural effusion CT Ordered: Yes - Additional EKG/XRAY/Consults EKG #2: Sinus - NSR, HR 75, no ST elevs, q waves persistent in anterior leads, axis & intervals normal, compared to initial EKG sinus bradycardia now resolved Departure - Departure Clinical Impression: Sinus bradycardia, COPD exacerbation, Fall from ground level, Respiratory distress, acute, Pericardial effusion Closed head injury Qualifiers: Encounter type: initial encounter Qualified Code(s): S09.90XA - Unspecified injury of head, initial encounter Time of Disposition: 13:17 Disposition: Transfer to Hospital Condition: Fair Departure Forms: ED Discharge - Pt. Copy, Patient Portal Self Enrollment Instructions: DI for Trauma Referrals: SRIKANTH GUZMÁN [Primary Care Provider] - 1-2 Weeks Home Medications: Ambulatory Orders Atorvastatin Calcium 40 mg PO DAILY 08/30/19 Carvedilol 12.5 mg PO BID 08/30/19 Clonidine HCl 0.1 mg PO PRN 08/30/19 Clopidogrel Bisulfate 75 mg PO DAILY 08/30/19 DULoxetine HCL [Cymbalta] 30 mg PO DAILY 08/30/19 Furosemide 20 mg PO PRN 08/30/19 Gabapentin 800 mg PO TID 08/30/19 Insulin Glargine [Toujeo Max Solostar] 50 units SUBCU DAILY 08/30/19 Insulin NPH (Human) (Isophane) [Novolin N] 50 units SUBCU BID 08/30/19 Insulin Regular (Human) [Novolin R] 20 units SUBCU QID 08/30/19 Pantoprazole Tablet [Protonix] 40 mg PO DAILY 08/30/19 Amlodipine Besylate [Norvasc] 10 mg PO DAILY 09/25/19 Celecoxib 200 mg PO DAILY 09/25/19 Azithromycin Tab [Zithromax Tab] 250 mg PO DAILY 01/15/20 Transfer to Outside Facility - Transfer Information Decision to Transfer Date: 01/15/20 Decision to Transfer Time: 13:18 Reason for Transfer: required specialist not available Accepting Provider:: Dr. Sanchez Accepting Facility: [facility]
[2020-01-15] MEDS: ATROPINE SULFATE 0.5 MG/5 ML SYRINGE IV ONE (11:21)
[2020-01-15] MEDS: IPRATROPIUM/ALBUTEROL 3 ML VIAL INH ONE (11:22)
--- NOTE | 2020-01-15 12:01 | RAD ---
EXAM DESCRIPTION: Chest,1 View CLINICAL HISTORY: 69 years Male, dyspnea, hypoxia COMPARISON: January 08, 2020 Findings: One view(s)/radiograph(s) Cardiomegaly. Pulmonary vascular congestion. No pneumothorax. Increased large right pleural effusion with adjacent airspace disease. The left lung is clear. Remote left rib deformities. No acute osseous abnormality. IMPRESSION: CHF. Large right pleural effusion with adjacent atelectasis/consolidation. Electronically signed by: George Barron MD 01/15/2020 11:59 AM CDT
--- NOTE | 2020-01-15 12:02 | RAD ---
EXAM DESCRIPTION: Pelvis CLINICAL HISTORY: 69 years Male, Ground level fall COMPARISON: None. Findings: One view(s)/radiograph(s) Evaluation limited by habitus and technique. Mild bilateral hip osteoarthritis. No acute fracture or dislocation. No focal soft tissue swelling. IMPRESSION: No acute osseous abnormality identified in the pelvis. Electronically signed by: George Barron MD 01/15/2020 12:00 PM CDT
[2020-01-15] MEDS: IPRATROPIUM/ALBUTEROL 3 ML VIAL NEB ONE (12:03)
--- NOTE | 2020-01-15 12:04 | CT ---
CT CERVICAL SPINE WITHOUT IV CONTRAST, CT HEAD WITHOUT IV CONTRAST HISTORY: 69 years Male GLF, closed head injury occipital COMPARISON: MRI brain dated February 27, 2018. TECHNIQUE: Serial axial tomographic images of the brain and the cervical spine were obtained without the use of intravenous contrast. Additionally, multiplanar reformatted images of the cervical spine were also provided for review. This exam was performed according to our departmental dose-optimization program, which includes automated exposure control, adjustment of the mA and/or kV according to patient size and/or use of iterative reconstruction technique. FINDINGS: No intracranial hemorrhage. No hydrocephalus or herniation. Extra-axial spaces within normal limits for patient age. Lund-white matter differentiation maintained. Scattered foci of abnormal low attenuation are present within the supratentorial white matter which are nonspecific but compatible with chronic microvascular ischemia. Brainstem and cerebellum are unremarkable. The included orbits and their contents are unremarkable. The visualized paranasal sinuses, mastoid air cells and middle ear cavities are unremarkable. Included osseous structures of the skull and included face demonstrate no acute injury. Soft tissue stranding and edema in the left parietal scalp are consistent with reported history of trauma Cervical vertebrae demonstrate normal alignment. Vertebral body height maintained. Posterior elements appear intact. Scattered multilevel degenerative changes of the cervical spine, most pronounced at C5-C6. Probable at least mild neuroforaminal narrowing bilaterally at this level. There are scattered atherosclerotic changes noted. Large volume right pleural effusion and partially imaged thorax. IMPRESSION: No acute intracranial process. No evidence of acute injury in the osseous cervical spine. Large volume right pleural effusion in the partially imaged thorax. Hemothorax would be possible in the setting of acute trauma. Recommend dedicated CT of the chest for further evaluation, to include both arterial and venous phase postcontrast imaging if not contraindicated. Electronically signed by: Humphrey James MD 01/15/2020 12:02 PM CDT
[2020-01-15] MEDS: FUROSEMIDE INJ 40 MG/4 ML VIAL IV ONE (12:46)
[2020-01-15] MEDS: SODIUM CHLORIDE 0.9% (FLUSH) 10 ML SYG IV PRN (12:46)
--- NOTE | 2020-01-15 13:08 | CT ---
EXAM DESCRIPTION: CTA Chest CLINICAL HISTORY: 69 years, Male, acute hypoxic resp distress, elevated d-dimer COMPARISON: Previous noncontrast screening CT chest June 07, 2018, chest x-ray January 15, 2020 TECHNIQUE: CT pulmonary angiography is performed with thin-section multi detector technique during rapid bolus administration of routine adult dose of nonionic iodinated IV contrast media. Multiplanar reformatted images are reviewed along with source images and maximum intensity projection three dimensional images which were created on a separate dedicated workstation and are stored in the patient's medical record. FINDINGS: Normal enhancement of pulmonary arteries. Large right pleural effusion with small left pleural effusion. Normal enhancement of cardiac chambers. Moderate to large pericardial effusion is present. Correlate with echocardiographic findings. The interventricular septum is normally bowed toward the right arguing against equalization of ventricular pressures from cardiac tamponade. Early enhancement of the aorta is negative for aneurysm or dissection. Extensive coronary arterial calcification. Lung window images are positive for consolidated area is likely atelectasis involving both lower lobes and right middle lobe and to a lesser extent the dependent portion of the right upper lobe anterior to the effusions. No worrisome mass or nodule. In the upper abdomen, small amount of fluid is seen around the liver and spleen consistent with ascites. Gallbladder surgically absent. Nodular left adrenal gland likely adenomas or nodular hyperplasia. Small amount of fluid near the stomach. Liver is prominent in size which is passive hepatic congestion. Prominent upper abdominal lymph nodes (axial image 12, series 2) with short axis dimensional measurements 0.8 to 1.2 cm. Otherwise the abdominal viscera are unremarkable. No chest wall mass or rib fracture. No axillary or lower cervical adenopathy. Thyroid gland appears normal. Edema in the subcutaneous fatty tissues of the chest wall and upper abdominal wall consistent with third space fluid accumulation. This could be related to right heart failure or hypoalbuminemia. Correlate with other studies. Oblique coronal and oblique sagittal reformatted MIP images confirm normal pulmonary arterial enhancement. Normal enhancement of the aorta. Lower thoracic compressions with vertebroplasty methacrylate. IMPRESSION: Negative for evidence of pulmonary embolic disease. Large right and moderate left pleural effusions with moderate to large pericardial effusion. Small amount of upper abdominal ascites. Bilateral pulmonary volume loss anterior to the effusions. This exam was performed according to our departmental dose-optimization program, which includes automated exposure control, adjustment of the mA and/or kV according to patient size and/or use of iterative reconstruction technique. Total DLP equals 100 mGycm. Electronically signed by: Henry Gonsales MD 01/15/2020 1:06 PM CDT
[2020-01-15 15:10] VITALS: BP 161/84; TEMP 97.1; O2SAT 91
== END 2020-01-15 14:45 | disposition short-term general hospital (02) ==
LOC: ER 11:05
DX: S09.90XA Unspecified injury of head, initial encounter (principal); R00.1 Bradycardia, unspecified; J44.1 Chronic obstructive pulmonary disease with (acute) exacerbation; R06.03 Acute respiratory distress; J90 Pleural effusion, not elsewhere classified; I11.0 Hypertensive heart disease with heart failure; I50.9 Heart failure, unspecified; E11.9 Type 2 diabetes mellitus without complications; Z20.828 Contact with and (suspected) exposure to other viral communicable diseases; Z86.73 Personal history of transient ischemic attack (TIA), and cerebral infarction without residual deficits; Z87.01 Personal history of pneumonia (recurrent); Z79.02 Long term (current) use of antithrombotics/antiplatelets; Z79.899 Other long term (current) drug therapy; Z79.4 Long term (current) use of insulin; W19.XXXA Unspecified fall, initial encounter; Y92.9 Unspecified place or not applicable
CPT/HCPCS: 36415; 70450; 71045; 71275; 72125; 72170; 80053; 81001; 83605; 83735; 83880; 84443; 84484; 85025; 85379; 85610; 85730; 87635; 93005; 94640; J1940; J7620

== ENCOUNTER → 2020-03-20 | Outpatient (CLI) | payer MEDICARE ==
--- NOTE | 2020-03-21 09:36 | MRI ---
EXAM DESCRIPTION: Thoracic Spine w/o Contrast: Magnetic Resonance Imaging. CLINICAL HISTORY: ACUTE BACK PAIN COMPARISON: MRI scan of the thoracic spine without contrast May 2016. TECHNIQUE: Multiplanar, multiple standard sequences, non contrast MRI, thoracic spine. FINDINGS: Minimal depression of the superior endplate of T6 with marrow edema in the endplate and inferior to the endplate, extending from anterior to posterior cortex. Was not present on the prior study. No marrow edema in the pedicles, or the remainder of the posterior elements. Anterior vertebral body height is 1.4 cm and posterior vertebral body height 1.8 cm. T5-T6 disc and T6-T7 disc with minimal desiccation. Minimal posterior bulging of the T6-T7 disc in the midline abutting the cord, moderate canal narrowing. No foraminal stenosis bilaterally with moderate narrowing on the right T6-T7. Vertebral augmentation central T7 vertebral body since the prior study with no acute marrow edema. Mild bulging of the T7-T8 disc. Posterior elements are intact. No stenosis of the canal or the bilateral T7-T8 foramina. Stable appearance of vertebral augmentation at T8 and T9 since the prior study with no loss of height. No acute marrow edema. Posterior elements are intact. Midline bulging of the T8-T9 disc encroaching on the cord similar to prior study with borderline canal stenosis. Mild bilateral foraminal narrowing, more left than right. Minimal desiccation T9-T10 disc with concavity of the inferior T9 endplate. Canal patent; foraminal narrowing but no stenosis. Again noted is T10-T11 disc desiccation with large herniation in the midline and to the left of midline impressing on the cord with mild canal stenosis. No cord edema. Moderate bilateral foraminal narrowing more on the right. Remaining discs with normal signal. Disc spaces are preserved. Canal and foramina are patent. Facet joints are unremarkable. Circumscribed hyperintense T1 and T2 hemangiomas in the T1 vertebral body and the T4 vertebral body. Conus terminates below the inferior limit of the study at T1. Cord with normal signal. No scoliosis. Paravertebral soft tissues are unremarkable. Otherwise normal marrow signal in the remaining vertebral bodies and the posterior elements. Vertebral bodies are not compressed at any level. IMPRESSION: 1. Mild compression of the superior T6 endplate new since the prior study. No significant retropulsion in the canal. No marrow edema in the bilateral pedicles or other posterior elements. T6-T7 disc is bulging in the midline abutting the cord with moderate canal narrowing. No foraminal stenosis at these levels. 2. Vertebral body augmentation at T7 since the prior study with minimal loss of height but no new marrow edema in the vertebral body, pedicles, or other posterior elements. No canal stenosis or foraminal stenosis at T7-T8. 3. Stable vertebral body augmentation at T8 and T9. Posterior T8-T9 focal disc bulge or protrusion abutting the cord with borderline canal stenosis. Stable since the prior study. 4. Posterior midline and left paracentral T10-T11 disc herniation impressing on the cord with mild canal stenosis but no cord edema. No foraminal stenosis. Electronically signed by: Itz Wall MD 03/21/2020 9:34 AM CDT
== END ==
LOC: MRI 14:04
PROVIDERS: ATTEND Nurse Practitioner Family
DX: M51.84 Other intervertebral disc disorders, thoracic region (principal); M51.24 Other intervertebral disc displacement, thoracic region

== ENCOUNTER → 2020-04-30 | Outpatient (CLI) | payer MEDICARE | LOC: YCHH 08:28 | PROVIDERS: ATTEND Emergency Medicine | DX: D64.9 Anemia, unspecified (principal); E11.42 Type 2 diabetes mellitus with diabetic polyneuropathy; I11.0 Hypertensive heart disease with heart failure; I50.9 Heart failure, unspecified ==

== ENCOUNTER → 2020-06-13 | Outpatient (CLI) | payer MEDICARE ==
--- NOTE | 2020-06-13 17:46 | RAD ---
EXAM DESCRIPTION: Foot,Right 3 Views CLINICAL HISTORY: 69 years, Male, pain in right foot COMPARISON: None TECHNIQUE: AP, lateral, and oblique views of the right foot FINDINGS: Bones are osteopenic or osteoporotic. Fragmented proximal phalanx of the second toe consistent with a fracture, likely chronic and partially healed. Correlate with clinical exam and point of maximal tenderness. The first toe has been amputated. Lateral view shows intact talus and calcaneus with dorsal and plantar calcaneal spurs. Extensive vascular calcification. IMPRESSION: Amputated great toe. Deformity of the proximal phalanx of the second toe may be old healed fracture. Osteoporotic appearance the bones. Prominent calcaneal spurring. Electronically signed by: Henry Gonsales MD 06/13/2020 5:45 PM [facility]
== END ==
LOC: RAD 09:05
PROVIDERS: ATTEND Podiatrist Foot & Ankle Surgery
DX: M81.6 Localized osteoporosis [Lequesne] (principal); M77.31 Calcaneal spur, right foot; M20.61 Acquired deformities of toe(s), unspecified, right foot; Z89.411 Acquired absence of right great toe

== ENCOUNTER 2020-06-21 09:40 | Emergency (ER) | payer MEDICARE ==
[2020-06-21 10:09] VITALS: TEMP 98.3
[2020-06-21] MEDS ORDERED: metOLazone 2.5 MG TAB PO ONE (10:18)
[2020-06-21] MEDS ORDERED: FUROSEMIDE INJ 40 MG/4 ML VIAL IV ONE (10:18)
--- NOTE | 2020-06-21 10:42 | RAD ---
EXAMINATION: Chest,2 Views. HISTORY: 69 years Male. fluid retention, hx of chf. . . TECHNIQUE: XR CHEST 2 VIEWS COMPARISON: 01/15/2020 FINDINGS: Limited examination due to prominent soft tissue attenuation. Stable nonspecific slight elevation of right hemidiaphragm. Cardiac silhouette size is at the upper limits of normal without vascular congestion. There is no pulmonary consolidation. No radiographically visible pneumothorax. No definite evidence of pleural effusion. No visible acute displaced fracture in the regional skeleton. Stable healed left rib fractures. Multilevel thoracic spine kyphoplasty again noted. IMPRESSION: No acute cardiopulmonary disease in the visualized chest. Electronically signed by: Herman Brasher MD 06/21/2020 10:40 AM [facility]
--- NOTE | 2020-06-21 11:10 | ED.PDOC ---
History of Present Illness - General Chief Complaint: Cardiac Respiratory Arrest Stated Complaint: shortness of breath Time Seen by Provider: 06/21/20 09:43 Source: patient Exam Limitations: no limitations - History of Present Illness Initial Comments: The patient is a 69-year-old male presented emergency room secondary to a 2 weeks progression of increased weight by about 14 pounds. The patient was in the hospital up until a month ago secondary to a CHF exacerbation. He has been taking his diuretics but unlike how it is written, he has only been taking Lasix once a day rather than twice a day. 1+ edema to bilateral lower extremities. He does report that he gets a little short of breath with lying back flat. He has not hypoxic. No obvious increased work of breathing while at rest. No hypoxia. No productive cough. He reports some increased abdominal girth. There is possibly some mild ascites on exam. He is pleasant and calm cooperative and in no acute distress. No syncope or near syncope. No current chest pain. He does get short of breath with exertion. Timing/Duration: getting worse, other - 2 weeks Severity: moderate Improving Factors: rest Worsening Factors: movement Associated Symptoms: shortness of breath Allergies/Adverse Reactions: Allergies NO KNOWN ALLERGY Allergy (Verified 01/15/20 12:05) Home Medications: Ambulatory Orders Atorvastatin Calcium 40 mg PO DAILY 08/30/19 Carvedilol 12.5 mg PO BID 08/30/19 Clonidine HCl [Clonidine Hydrochloride] 0.1 mg PO PRN 08/30/19 Clopidogrel Bisulfate 75 mg PO DAILY 08/30/19 DULoxetine HCL [Cymbalta] 30 mg PO DAILY 08/30/19 Furosemide 20 mg PO PRN 08/30/19 Gabapentin 800 mg PO TID 08/30/19 Insulin Glargine [Toudaniel Barba] 50 units SUBCU DAILY 08/30/19 Insulin NPH (Human) (Isophane) [Novolin N] 50 units SUBCU BID 08/30/19 Insulin Regular (Human) [Novolin R] 20 units SUBCU QID 08/30/19 Pantoprazole Tablet [Protonix] 40 mg PO DAILY 08/30/19 Amlodipine Besylate [Norvasc] 10 mg PO DAILY 09/25/19 Celecoxib 200 mg PO DAILY 09/25/19 Azithromycin Tab [Zithromax Tab] 250 mg PO DAILY 01/15/20 Review of Systems - Review of Systems Constitutional: States: malaise EENTM: States: no symptoms reported Respiratory: States: short of breath Cardiology: States: edema Gastrointestinal/Abdominal: States: no symptoms reported Genitourinary: States: no symptoms reported Musculoskeletal: States: no symptoms reported Skin: States: no symptoms reported Neurological: States: anxiety Endocrine: States: no symptoms reported All other Systems: No Change from Baseline Past Medical History (General) - Patient Medical History Hx Seizures: No Hx Stroke: Yes - TIA Hx Dementia: No Hx Asthma: No Hx of COPD: No Hx Cardiac Disorders: Yes Hx Congestive Heart Failure: Yes Hx Pacemaker: No Hx Hypertension: Yes Hx Thyroid Disease: No Hx Diabetes: Yes Hx Gastroesophageal Reflux: Yes Hx Renal Disease: Yes Hx Cancer: No Hx of HIV: No Hx Hepatitis C: No Hx MRSA: No Surgical History: cholecystectomy, tonsillectomy - Vaccination History Hx Tetanus, Diphtheria Vaccination: Yes Hx Influenza Vaccination: No Hx Pneumococcal Vaccination: No - Social History Hx Tobacco Use: Yes Hx Chewing Tobacco Use: No Hx Alcohol Use: No Hx Substance Use: No Hx Substance Use Treatment: No Hx Depression: No Hx Physical Abuse: No Hx Emotional Abuse: No Hx Suspected Abuse: No Family Medical History - Family History Mother Family History: Unknown Physical Exam - Physical Exam General Appearance: Alert, Anxious Eye Exam: bilateral normal Ears, Nose, Throat: hearing grossly normal - Chronic hearing loss, normal pharynx Neck: full range of motion, supple Respiratory: lungs clear, normal breath sounds, no respiratory distress, no accessory muscle use Cardiovascular/Chest: normal peripheral pulses, regular rate, rhythm, other - +1 edema Peripheral Pulses: radial,right: 2+, radial,left: 2+ Gastrointestinal/Abdominal: non tender - Mild ascites, soft Rectal Exam: deferred Back Exam: no CVA tenderness, no vertebral tenderness Extremity: non-tender, normal inspection, no pedal edema, normal capillary refill 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 He has had CHF issues in the past. It does appear that he is having some mild fluid retention. I believe that if he takes his Lasix as it is written, he will likely have less fluid retention. He does of course need to maintain it to liter fluid restriction and a low salt diet. Additionally he does need to be mobile and active. He also needs to work on weight loss to help reduce stress on his heart and kidneys. No evidence of hypoxia. EKG is reassuring. Laboratory work is otherwise reassuring. Is moderately hyperglycemic here today and does need to follow that closely at home. Follow-up with primary care doctor next week. ER warnings are given. He did receive a dose of Lasix and metolazone here this morning. laila sabine [id number] - Results/Orders Results/Orders: Laboratory Tests 06/21/20 06/21/20 06/21/20 10:27 10:27 10:27 WBC 7.1 RBC 4.48 L Hgb 13.4 L Hct 40.3 L MCV 89.9 MCH 29.9 MCHC 33.2 RDW 14.9 H Plt Count 248 MPV 7.9 Absolute Neuts (auto) 4.40 Absolute Lymphs (auto) 1.80 Absolute Monos (auto) 0.70 Absolute Eos (auto) 0.20 Absolute Basos (auto) 0.10 Neutrophils % 61.4 Lymphocytes % 25.5 Monocytes % 9.9 H Eosinophils % 2.4 Basophils % 0.8 PT 9.8 INR < 1.00 PTT (SP) 23.3 Sodium 138 Potassium 4.9 Chloride 101 Carbon Dioxide 28 Anion Gap 13.9 BUN 29 H Creatinine 1.44 H BUN/Creatinine Ratio 20.1 H Random Glucose 286 H Serum Osmolality 291.9 Calcium 8.4 Magnesium 2.5 Total Bilirubin 0.7 AST 28 ALT 24 Alkaline Phosphatase 67 Creatine Kinase 115 CK-MB (CK-2) 5.3 H* CK-MB (CK-2) % Not Reportable Troponin I < 0.02 B-Natriuretic Peptide 41.1 Serum Total Protein 7.6 Albumin 3.8 Globulin 3.8 H Albumin/Globulin Ratio 1.0 L 2 view chest x-ray appears largely benign. No overt fluid overload. EKG shows normal sinus rhythm at 88 bpm. Q-wave in lead III. Normal progression of R waves. Normal QT interval. No ST segment or T wave changes otherwise indicative of acute ischemia. No previous for comparison. Departure - Departure Clinical Impression: Fluid retention in legs Disposition: Discharge to Home or Self Care Condition: Fair Departure Forms: ED Discharge - Pt. Copy, Patient Portal Self Enrollment Instructions: Dependent Edema (DC) Diet: low salt diet Activity: increase activity as tolerated Referrals: NU GUZMÁN [Primary Care Provider] - 1-5 Days Home Medications: Ambulatory Orders Atorvastatin Calcium 40 mg PO DAILY 08/30/19 Carvedilol 12.5 mg PO BID 08/30/19 Clonidine HCl [Clonidine Hydrochloride] 0.1 mg PO PRN 08/30/19 Clopidogrel Bisulfate 75 mg PO DAILY 08/30/19 DULoxetine HCL [Cymbalta] 30 mg PO DAILY 08/30/19 Furosemide 20 mg PO PRN 08/30/19 Gabapentin 800 mg PO TID 08/30/19 Insulin Glargine [Toujeo Max Solostar] 50 units SUBCU DAILY 08/30/19 Insulin NPH (Human) (Isophane) [Novolin N] 50 units SUBCU BID 08/30/19 Insulin Regular (Human) [Novolin R] 20 units SUBCU QID 08/30/19 Pantoprazole Tablet [Protonix] 40 mg PO DAILY 08/30/19 Amlodipine Besylate [Norvasc] 10 mg PO DAILY 09/25/19 Celecoxib 200 mg PO DAILY 09/25/19 Azithromycin Tab [Zithromax Tab] 250 mg PO DAILY 01/15/20 Additional Instructions: The patient is a 69-year-old male presented emergency room secondary to progressive shortness of breath weight gain. He has had CHF issues in the past. It does appear that he is having some mild fluid retention. I believe that if he takes his Lasix as it is written, he will likely have less fluid retention. He does of course need to maintain it to liter fluid restriction and a low salt diet. Additionally he does need to be mobile and active. He also needs to work on weight loss to help reduce stress on his heart and kidneys. No evidence of hypoxia. EKG is reassuring. Laboratory work is otherwise reassuring. Is moderately hyperglycemic here today and does need to follow that closely at home. Follow-up with primary care doctor next week. ER warnings are given. He did receive a dose of Lasix and metolazone here this morning.
[2020-06-21 12:08] VITALS: BP 137/75; O2SAT 93
== END 2020-06-21 11:15 | disposition home or self-care (01) ==
LOC: ER 09:40
DX: R60.0 Localized edema (principal); R06.02 Shortness of breath; I50.9 Heart failure, unspecified; E11.22 Type 2 diabetes mellitus with diabetic chronic kidney disease; N18.9 Chronic kidney disease, unspecified; I13.0 Hypertensive heart and chronic kidney disease with heart failure and stage 1 through stage 4 chronic kidney disease, or unspecified chronic kidney disease; K21.9 Gastro-esophageal reflux disease without esophagitis; Z86.73 Personal history of transient ischemic attack (TIA), and cerebral infarction without residual deficits; Z79.4 Long term (current) use of insulin; Z79.899 Other long term (current) drug therapy
CPT/HCPCS: 36415; 71046; 80053; 82550; 82553; 83735; 83880; 84484; 85025; 85610; 85730; 93005; J1940

== ENCOUNTER → 2020-07-04 | Outpatient (CLI) | payer MEDICARE ==
--- NOTE | 2020-07-07 09:08 | RAD ---
XR FOOT 3 OR MORE VIEWS, XR TOES 2 OR MORE VIEWS HISTORY: 69 years Male OSTEOMYELITIS COMPARISON: June 13, 2020. TECHNIQUE: 3 views of the right foot and right toes. 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 No acute fracture or dislocation. There is subtle osseous erosion suspected at the tip of the distal phalanx of the third digit, concerning for possible osteomyelitis. Remaining included osseous structures appear intact. Mild to moderate osteoarthritic change scattered throughout the mid and forefoot. Large plantar and posterior calcaneal enthesophytes. Extensive vascular calcifications noted. No radiopaque foreign body identified. IMPRESSION: Subtle erosion of the tip of the distal phalanx of the third toe of the right foot. If this corresponds to the location of reported soft tissue infection, findings would represent osteomyelitis. Electronically signed by: Humphrey James MD 07/07/2020 9:06 AM [facility]
== END ==
LOC: RAD 17:11
PROVIDERS: ATTEND Podiatrist Foot & Ankle Surgery
DX: M86.171 Other acute osteomyelitis, right ankle and foot (principal); Z89.411 Acquired absence of right great toe